=== PATIENT | female | born 1950 | race African-American/Black ===

== ENCOUNTER 2021-03-23 21:10 | Observation (INO) ==
[2021-03-23 22:59] LABS: Basophils % 0.3 % (0.0-0.8); Eosinophils # 0.1 10*3/uL (0.0-0.87); Eosinophils % 1.2 % (0.00-10.9); Hematocrit 37.1 VOL% (35.7-47.0); Hemoglobin 11.5 GM/DL (12.0-16.0); Immature Granulocytes % 0.3 %; Immature Granulocytes Absolute 0.04 #; Lymphocytes # 2.6 10*3/uL (1.4-4.0); Lymphocytes % 21.4 % (21.3-54.2); Monocytes % 6.9 % (1.7-12.7); Neutrophils % 69.9 % (38.7-73.9); Platelet Count 260 T/CUMM (130-400); Red Blood Count 3.99 MC/CUMM (3.8-5.5); Red Cell Distribution Width 13.4 % (9.3-17.3); White Blood Count 12.1 T/CUMM (4-12)
[2021-03-23 23:07] LABS: Partial Thromboplastin Time 26.6 SECS (23.9-33.8)
[2021-03-23] MEDS ORDERED: ASPIRIN 325 MG TABLET PO STA (23:09)
[2021-03-23 23:13] LABS: Alanine Aminotransferase 18 U/L (13-56); Albumin 3.8 G/DL (3.4-5.0); Alkaline Phosphatase 84 U/L (45-117); Aspartate Amino Transferase 17 U/L (0-37); Bilirubin,Total < 0.39 MG/DL (0.20-1.00); Blood Urea Nitrogen 45 MG/DL (7-18); Calcium 8.8 MG/DL (8.5-10.1); Carbon Dioxide 26 MMOL/L (21-32); Estimated Glom Filtration Rate 44 ML/MIN; Glucose 114 MG/DL (74-106); Osmolality,Calculated 278.4 MOS/KG (273-304); Potassium 4.3 MMOL/L (3.5-5.1); Sodium 133 MMOL/L (136-145); Total Protein 7.7 G/DL (6.4-8.2)
[2021-03-23] MEDS: NITROGLYCERIN SL 0.4 MG TABLET SL PRN ×2 (23:13→23:45)
[2021-03-24] MEDS ORDERED: BISACODYL 5 MG TABLET PO PRN (00:14)
[2021-03-24] MEDS ORDERED: guaiFENesin/DM ER 600-30 MG TABLET PO PRN (00:14)
[2021-03-24] MEDS ORDERED: hydrALAZINE 20 MG/1 ML VIAL IV PRN (00:14)
[2021-03-24] MEDS ORDERED: GLUCAGON 1 MG VIAL IM PRN (00:14)
[2021-03-24] MEDS ORDERED: DEXTROSE 50% 25 GM/50 ML VIAL IV PRN (00:14)
[2021-03-24] MEDS ORDERED: ZALEPLON 5 MG CAPSULE PO PRN (00:14)
[2021-03-24] MEDS ORDERED: ACETAMINOPHEN 325 MG TABLET PO PRN (00:14)
[2021-03-24] MEDS ORDERED: NICOTINE 21 MG/24 HR PATCH TRANSDERM PRN (00:14)
[2021-03-24] MEDS ORDERED: ONDANSETRON 4 MG/2 ML VIAL IV PRN (00:14)
[2021-03-24] MEDS ORDERED: diphenhydrAMINE CAP 25 MG CAPSULE PO PRN (00:14)
[2021-03-24] MEDS ORDERED: FUROSEMIDE 40 MG/4 ML VIAL IV STA (00:18)
[2021-03-24] MEDS ORDERED: FUROSEMIDE 40 MG/4 ML VIAL ONE (00:21)
[2021-03-24] MEDS ORDERED: methylPREDNISolone SOD SUC 40 MG/1 ML VIAL IV SCH (00:30)
[2021-03-24 07:04] LABS: Basophils % 0.2 % (0.0-0.8); Hemoglobin 11.7 GM/DL (12.0-16.0); Immature Granulocytes % 0.8 %; Immature Granulocytes Absolute 0.07 #; Lymphocytes # 0.7 10*3/uL (1.4-4.0); Lymphocytes % 8.2 % (21.3-54.2); Mean Corpuscular HGB Conc 31.6 GM/DL (32-36); Mean Corpuscular Volume 90.2 FL (87-102); Mean Platelet Volume 11.7 FL (9.6-12.0); Monocytes % 0.6 % (1.7-12.7); Neutrophils % 90.2 % (38.7-73.9); Platelet Count 259 T/CUMM (130-400); Red Cell Distribution Width 13.3 % (9.3-17.3); White Blood Count 8.4 T/CUMM (4-12)
[2021-03-24 07:27] LABS: Lymphocytes 7 % (20-55); Platelet Estimate Normal; Segmented Neutrophils 93 % (50-85); Total Cells Counted 100
[2021-03-24 07:59] LABS: Calcium 9.4 MG/DL (8.5-10.1); Osmolality,Calculated 282.2 MOS/KG (273-304); Potassium 4.8 MMOL/L (3.5-5.1)
[2021-03-24] MEDS ORDERED: PANTOPRAZOLE 40 MG TABLET PO SCH (09:00)
[2021-03-24] MEDS ORDERED: MONTELUKAST 10 MG TABLET PO SCH (09:00)
[2021-03-24] MEDS ORDERED: FUROSEMIDE 40 MG/4 ML VIAL IV SCH (12:00)
[2021-03-24 13:03] VITALS: BP 129/55
[2021-03-25] MEDS ORDERED: HEPARIN 5,000 UNIT/1 ML VIAL SUBCUT SCH (09:00)
== END 2021-03-24 13:43 | disposition home or self-care (01) ==
LOC: N.ED 21:10 → N.EDINP 21:10 → N.TELES 03-24 00:53
PROVIDERS: ADMIT Internal Medicine; ATTEND Internal Medicine